=== PATIENT | male | born 1965 | race Caucasian/White ===

== ENCOUNTER 2018-10-06 13:22 | Emergency (ER) | payer MEDICAID ==
--- NOTE | 2018-10-06 13:57 | EDM.PDOC ---
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 Right upper lip. No inside mouth damage. Damage limited to upper lip only. No other complaints. No other injuries. PD attempting to identify and notify the owners. Initial indicators are that the dog is vaccinated. Onset: Today, Sudden Location: Reports: Face - Related Data Allergies Allergy/AdvReac Type Severity Reaction Status Date / Time No Known Allergies Allergy Verified 03/23/14 13:36 Home Meds: Home Meds ARIPiprazole [Abilify] 10 mg PO DAILY 04/11/14 [History] Albuterol Sulfate [Albuterol Sulfate HFA] 1 - 2 puff INH Q4H PRN 04/11/14 [ History] Atenolol [Tenormin] 1 tab PO DAILY 04/11/14 [History] Cyclobenzaprine [Flexeril] 1 tab PO TID PRN 04/11/14 [History] Docosanol [Abreva 10%] 1 applic TOP ASDIRECTED 04/11/14 [History] Fish Oil/[place]ster-3 Fatty Acids [Fish Oil 1,000 MG] 1,000 mg PO DAILY 04/11/14 [ History] Multivitamin [Multivitamins] 1 tab PO DAILY 04/11/14 [History] Naproxen [Naprosyn] 1 tab PO BID 04/11/14 [History] Omeprazole [Prilosec] 1 cap PO QAM 04/11/14 [History] PARoxetine [Paxil CR] 37.5 mg PO DAILY 04/11/14 [History] Tiotropium [Spiriva HandiHaler] 1 cap INH DAILY 04/11/14 [History] ED ROS GENERAL - Review of Systems Review Of Systems: See Below Constitutional: Reports: No Symptoms HEENT: Reports: No Symptoms Respiratory: Reports: No Symptoms Cardiovascular: Reports: No Symptoms Endocrine: Reports: No Symptoms GI/Abdominal: Reports: No Symptoms : Reports: No Symptoms Musculoskeletal: Reports: No Symptoms Skin: Reports: Wound (right upper lip) Neurological: Reports: No Symptoms Psychiatric: Reports: No Symptoms Hematologic/Lymphatic: Reports: No Symptoms Immunologic: Reports: No Symptoms ED EXAM, GENERAL - Physical Exam Exam: See Below Exam Limited By: No Limitations General Appearance: Alert, WD/WN, No Apparent Distress Nose: Normal Inspection, Normal Mucosa, No Blood Throat/Mouth: Normal Teeth, Normal Gums, Normal Oropharynx, Normal Voice, No Airway Compromise, Other (right upper lip with 1.5 cm laceration from dog bite. Linear). No: Normal Lips Head: Atraumatic, Normocephalic Neck: Normal Inspection, Supple, Non-Tender, Full Range of Motion Skin Exam: Wound/Incision (1.5 linear laceration to right upper noemi of the lip) ED GENERAL MEDICAL PROCEDURES - Laceration/Wound Repair Right Upper Other Lac/wound length in cm: 1.5 (right upper noemi of lip) Appearance: Superficial, Linear Distal NVT: Neuro & Vascular Intact Anesthetic Type: Local Local Anesthesia - Lidocaine (Xylocaine): 1% Plain Local Anesthetic Volume: 3cc Skin Prep: Chlorhexidine (Hibiciens) Exploration/Debridement/Repair: Wound Explored, In a Bloodless Field, Explored to Base, No Foreign Material Found Closed with: Sutures Suture Size: other (5-0) # of Sutures: 3 Suture Type: Nylon, Interrupted Sterile Dressing Applied: None Tetanus Status Addressed: Yes Complications: No Course - Orders/Labs/Meds Meds: Medications Discontinued Medications Generic Name Dose Route Start Last Admin Trade Name Hunterq PRN Reason Stop Dose Admin Lidocaine HCl 5 ml 10/06/18 13:32 10/06/18 13:38 Xylocaine-Mpf 1% INJECT 10/06/18 13:33 5 ml ONETIME ONE Administration Departure - Departure Time of Disposition: 14:05 Disposition: Home, Self-Care 01 Condition: Good Clinical Impression: Dog bite of skin of lip - Discharge Information *PRESCRIPTION DRUG MONITORING PROGRAM REVIEWED*: Not Applicable *COPY OF PRESCRIPTION DRUG MONITORING REPORT IN PATIENT DAYNA: Not Applicable Instructions: Animal Bite, Adult, [id number], Amoxicillin; Clavulanic Acid tablets, Probiotics Forms: ED Department Discharge Additional Instructions: Plan 1. Take the full course of Augmentin. 875/125 mg twice a day for 5 days. Eat yogurt 1-2 times per day or take a daily probiotic while on the antibiotic 2. Follow up at the clinic for suture removal in 10 days 3. Wash wound with soap and water, otherwise keep clean and dry 4. Watch for signs of infection including fever, increased swelling, pain, pus like drainage, redness, or a red streak from the wound site 5. Please call if you have any questions or concerns. - Problem List & Annotations (1) Dog bite of skin of lip SNOMED Code(s): 260976132 Code(s): S01.551A - OPEN BITE OF LIP, INITIAL ENCOUNTER; W54.0XXA - BITTEN BY DOG, INITIAL ENCOUNTER Status: Acute Priority: Low Qualifiers: Encounter type: initial encounter Qualified Code(s): S01.551A - Open bite of lip, initial encounter; W54.0XXA - Bitten by dog, initial encounter - Problem List Review Problem List Initiated/Reviewed/Updated: Yes - Assessment/Plan Assessment:: dog bite right upper lip Plan: Plan 1. Take the full course of Augmentin. 875/125 mg twice a day for 5 days. Eat yogurt 1-2 times per day or take a daily probiotic while on the antibiotic 2. Follow up at the clinic for suture removal in 10 days 3. Wash wound with soap and water, otherwise keep clean and dry 4. Watch for signs of infection including fever, increased swelling, pain, pus like drainage, redness, or a red streak from the wound site 5. Please call if you have any questions or concerns.
[2018-10-06 14:46] VITALS: BP 115/69; PULSE 101
== END 2018-10-06 14:05 | disposition home or self-care (01) ==
LOC: VM.ED 13:22
DX: S01.551A Open bite of lip, initial encounter (principal); W54.0XXA Bitten by dog, initial encounter; Z79.899 Other long term (current) drug therapy
CPT/HCPCS: 12011; 99283; J2001; 12051

== ENCOUNTER 2021-12-15 01:55 | Emergency (ER) | payer BC, MEDICAID ==
[2021-12-15] MEDS ORDERED: Sodium Chloride 0.9% 10 ML Syringe FLUSH PRN (02:07)
[2021-12-15] MEDS ORDERED: Lactated Ringers 1,000 ML IV ONE (02:08)
[2021-12-15] MEDS ORDERED: Ondansetron 4 MG/2 ML SDV IVPUSH ONE (02:08)
[2021-12-15 02:10] VITALS: BP 150/80; PULSE 62
[2021-12-15 02:41] LABS: ANION GAP 10.4 mmol/L (5-15); CHLORIDE,CL 103 mmol/L (98-107); ESTIMATED GFR 71 mL/min (>=60); PTT,PARTIAL THROMBOPLSTIN TIME 26.7 SEC (20.5-30.9); SODIUM,NA 137 mmol/L (136-145)
== END 2021-12-15 03:14 | disposition home or self-care (01) ==
LOC: VM.ED 01:55
DX: R10.30 Lower abdominal pain, unspecified (principal); I10 Essential (primary) hypertension; F17.210 Nicotine dependence, cigarettes, uncomplicated; Z79.899 Other long term (current) drug therapy
CPT/HCPCS: 36415; 80053; 80307; 82150; 83690; 83735; 84100; 85025; 85610; 85730; 96361; 96374; 99284-25; J2405; J7120

== ENCOUNTER 2023-05-17 14:19 | Inpatient (IN) | payer BC, MEDICAID ==
[2023-05-17] MEDS: Sodium Chloride 0.9% 1,000 ML IV ONE (16:20)
[2023-05-17] MEDS: Ondansetron 4 MG/2 ML SDV IVPUSH ONE (16:20)
[2023-05-17 16:26] LABS: BASOPHILS PERCENT AUTO 0.1 % (0.2-1.2); HEMATOCRIT 48.5 % (40.0-52.0); HEMOGLOBIN 16.7 g/dL (14.0-18.0); IMMATURE GRAN ABSOLUTE AUTO 0.01 x10^3/uL (0.00-0.07); LYMPHOCYTES ABSOLUTE AUTO 0.9 x10^3/uL (1.0-4.8); LYMPHOCYTES PERCENT AUTO 8.9 % (25.0-50.0); MEAN CORPUSCULAR HEMOGLOBIN 29.1 pg (26.0-32.0); MEAN CORPUSCULAR HGB CONC 34.4 g/dL (32.0-36.0); MEAN CORPUSCULAR VOLUME 84.6 fL (78.0-93.0); MONOCYTES ABSOLUTE AUTO 1.1 x10^3/uL (0.0-0.8); MONOCYTES PERCENT AUTO 10.3 % (2.0-11.0); NEUTROPHILS ABSOLUTE AUTO 8.5 x10^3/uL (1.8-7.7); NEUTROPHILS PERCENT AUTO 80.6 % (50.0-80.0); PLATELET COUNT,PLT 197 x10^3/uL (130-400); RED BLOOD CELL COUNT 5.73 x10^6/uL (4.5-6.0); WHITE BLOOD CELL COUNT,WBC 10.6 x10^3/uL (4.0-10.0)
[2023-05-17 16:41] LABS: A/G RATIO 0.96; ALANINE AMINOTRANSFERASE,ALT 30 U/L (16-63); ALBUMIN 4.4 g/dL (3.4-5.0); ALKALINE PHOSPHATASE 107 U/L (46-116); ASPARTATE AMNIOTRANSFERASE,AST 28 U/L (15-37); BILIRUBIN TOTAL 1.1 mg/dL (0.2-1.0); BLOOD UREA NITROGEN,BUN 28 mg/dL (7-18); C-REACTIVE PROTEIN 6.87 mg/dL (<=0.50); CALCIUM 9.9 mg/dL (8.5-10.1); CARBON DIOXIDE,CO2 30 mmol/L (21-32); CHLORIDE,CL 100 mmol/L (98-107); CREATININE 1.4 mg/dL (0.70-1.30); ESTIMATED GFR 59 mL/min (>=60); GLUCOSE RANDOM 140 mg/dL (70-99); LIPASE 20 U/L (19-71); SODIUM,NA 142 mmol/L (136-145)
[2023-05-17 17:32] LABS: BILIRUBIN,URINE SMALL (NEGATIVE); GLUCOSE,URINE NEGATIVE (NEGATIVE); KETONES,URINE NEGATIVE (NEGATIVE); LEUKOCYTE ESTERASE,URINE NEGATIVE (NEGATIVE); NITRITE,URINE NEGATIVE (NEGATIVE); OCCULT BLOOD,URINE NEGATIVE (NEGATIVE); PH,URINE 5.5 (5.0-8.0); PROTEIN,URINE 100 mg/dL (NEGATIVE); UROBILINOGEN,URINE 0.2 EU/dL (0.2)
[2023-05-17 17:42] LABS: APPEARANCE,URINE CLEAR (CLEAR); COLOR,URINE DARK YELLOW (YELLOW)
[2023-05-17 17:44] LABS: BACTERIA,URINE NOT SEEN /HPF (NOT SEEN); HYALINE CASTS,URINE FEW; MUCUS,URINE OCCASIONAL /LPF (NOT SEEN); RBC,URINE 0-5 /HPF (NOT SEEN); SQUAMOUS EPITHELIAL CELLS,UR NOT SEEN /HPF (NOT SEEN); WBC,URINE NOT SEEN /HPF (NOT SEEN)
[2023-05-17] MEDS: Iopamidol 612 MG/ML 100 ML Bottle IVPUSH ONE (17:52)
[2023-05-17] MEDS ORDERED: Naloxone 0.4 MG/ML SDV IVPUSH PRN (19:53)
[2023-05-17] MEDS ORDERED: Ondansetron 4 MG/2 ML SDV IVPUSH PRN (19:57)
[2023-05-17] MEDS ORDERED: Albuterol HFA 18 Gm Inhaler INH PRN (20:25)
[2023-05-17] MEDS: Sodium Chloride 0.9% 1,000 ML IV SCH (21:02)
[2023-05-17] MEDS: ZALEPLON 10 MG PO SCH (21:42)
[2023-05-17] MEDS: Heparin Sodium 5,000 Units/ML Vial SUBCUT SCH (23:00)
[2023-05-18] MEDS: ARIPiprazole 5 MG Tab PO SCH ×2 (00:29→09:15)
[2023-05-18] MEDS: Lidocaine 4% 5 ML Amp TOP ONE (00:59)
[2023-05-18 08:05] LABS: BASOPHILS PERCENT AUTO 0.2 % (0.2-1.2); EOSINOPHILS PERCENT AUTO 0.2 % (0.0-4.0); HEMATOCRIT 41.7 % (40.0-52.0); HEMOGLOBIN 13.8 g/dL (14.0-18.0); LYMPHOCYTES ABSOLUTE AUTO 0.9 x10^3/uL (1.0-4.8); LYMPHOCYTES PERCENT AUTO 14.2 % (25.0-50.0); MEAN CORPUSCULAR HEMOGLOBIN 28.9 pg (26.0-32.0); MEAN CORPUSCULAR HGB CONC 33.1 g/dL (32.0-36.0); MEAN CORPUSCULAR VOLUME 87.4 fL (78.0-93.0); MONOCYTES ABSOLUTE AUTO 0.8 x10^3/uL (0.0-0.8); MONOCYTES PERCENT AUTO 12.3 % (2.0-11.0); NEUTROPHILS ABSOLUTE AUTO 4.7 x10^3/uL (1.8-7.7); NEUTROPHILS PERCENT AUTO 73.1 % (50.0-80.0); PLATELET COUNT,PLT 158 x10^3/uL (130-400); RED BLOOD CELL COUNT 4.77 x10^6/uL (4.5-6.0); WHITE BLOOD CELL COUNT,WBC 6.4 x10^3/uL (4.0-10.0)
[2023-05-18 08:27] LABS: A/G RATIO 0.89; ALBUMIN 3.4 g/dL (3.4-5.0); BILIRUBIN TOTAL 0.9 mg/dL (0.2-1.0); CALCIUM 8.7 mg/dL (8.5-10.1); CREATININE 1.2 mg/dL (0.70-1.30); EST CRCL DRUG DOSING (CG) 56.87 mL/min; POTASSIUM,K 3.8 mmol/L (3.5-5.1); PROTEIN TOTAL,TP 7.2 g/dL (6.4-8.2)
[2023-05-18 08:33] LABS: ANION GAP 12.8 mmol/L (5-15)
[2023-05-18] MEDS: PARoxetine 20 MG Tab PO SCH (09:16)
[2023-05-18] MEDS: Nicotine 21 MG/24 Hr Patch TRDERM SCH (09:21)
[2023-05-18] MEDS: Ketorolac 30 MG/ML SDV IVPUSH PRN (19:58)
[2023-05-19 07:13] LABS: BASOPHILS PERCENT AUTO 0.2 % (0.2-1.2); EOSINOPHILS ABSOLUTE AUTO 0.1 x10^3/uL (0.0-0.5); EOSINOPHILS PERCENT AUTO 1.2 % (0.0-4.0); HEMATOCRIT 37.8 % (40.0-52.0); HEMOGLOBIN 12.3 g/dL (14.0-18.0); IMMATURE GRAN ABSOLUTE AUTO 0.01 x10^3/uL (0.00-0.07); LYMPHOCYTES ABSOLUTE AUTO 0.9 x10^3/uL (1.0-4.8); LYMPHOCYTES PERCENT AUTO 18.5 % (25.0-50.0); MEAN CORPUSCULAR HEMOGLOBIN 29.2 pg (26.0-32.0); MEAN CORPUSCULAR HGB CONC 32.5 g/dL (32.0-36.0); MEAN CORPUSCULAR VOLUME 89.8 fL (78.0-93.0); MONOCYTES ABSOLUTE AUTO 0.5 x10^3/uL (0.0-0.8); MONOCYTES PERCENT AUTO 10.9 % (2.0-11.0); NEUTROPHILS ABSOLUTE AUTO 3.4 x10^3/uL (1.8-7.7); PLATELET COUNT,PLT 140 x10^3/uL (130-400); RED BLOOD CELL COUNT 4.21 x10^6/uL (4.5-6.0); WHITE BLOOD CELL COUNT,WBC 4.9 x10^3/uL (4.0-10.0)
[2023-05-19 07:35] LABS: A/G RATIO 0.91; BILIRUBIN TOTAL 0.8 mg/dL (0.2-1.0); CALCIUM 8.4 mg/dL (8.5-10.1); EST CRCL DRUG DOSING (CG) 68.24 mL/min; POTASSIUM,K 3.6 mmol/L (3.5-5.1); PROTEIN TOTAL,TP 6.3 g/dL (6.4-8.2)
[2023-05-19 07:36] LABS: ANION GAP 11.6 mmol/L (5-15)
[2023-05-19] MEDS ORDERED: Lactated Ringers 1,000 ML IV SCH (08:45)
[2023-05-19] MEDS: Pantoprazole 40 MG Vial IVPUSH SCH (13:18)
[2023-05-19] MEDS: HYDROmorphone 0.5 MG/0.5 ML Syringe IVPUSH PRN (14:40)
[2023-05-19] MEDS: D5 1/2 NS w/ 20 mEq/L KCl 1,000 ML IV SCH (22:49)
[2023-05-20 10:58] LABS: A/G RATIO 0.88; ALBUMIN 2.9 g/dL (3.4-5.0); BILIRUBIN TOTAL 0.8 mg/dL (0.2-1.0); CALCIUM 8.3 mg/dL (8.5-10.1); CREATININE 0.9 mg/dL (0.70-1.30); EST CRCL DRUG DOSING (CG) 75.83 mL/min; POTASSIUM,K 3.9 mmol/L (3.5-5.1); PROTEIN TOTAL,TP 6.2 g/dL (6.4-8.2)
[2023-05-20 10:59] LABS: ANION GAP 11.9 mmol/L (5-15)
[2023-05-20 11:02] LABS: EOSINOPHILS ABSOLUTE AUTO 0.1 x10^3/uL (0.0-0.5); EOSINOPHILS PERCENT AUTO 1.3 % (0.0-4.0); HEMATOCRIT 36.2 % (40.0-52.0); HEMOGLOBIN 11.7 g/dL (14.0-18.0); IMMATURE GRAN ABSOLUTE AUTO 0.01 x10^3/uL (0.00-0.07); LYMPHOCYTES ABSOLUTE AUTO 0.8 x10^3/uL (1.0-4.8); LYMPHOCYTES PERCENT AUTO 18.2 % (25.0-50.0); MEAN CORPUSCULAR HEMOGLOBIN 28.8 pg (26.0-32.0); MEAN CORPUSCULAR HGB CONC 32.3 g/dL (32.0-36.0); MEAN CORPUSCULAR VOLUME 89.2 fL (78.0-93.0); MONOCYTES ABSOLUTE AUTO 0.5 x10^3/uL (0.0-0.8); MONOCYTES PERCENT AUTO 9.8 % (2.0-11.0); NEUTROPHILS ABSOLUTE AUTO 3.3 x10^3/uL (1.8-7.7); NEUTROPHILS PERCENT AUTO 70.5 % (50.0-80.0); PLATELET COUNT,PLT 136 x10^3/uL (130-400); RED BLOOD CELL COUNT 4.06 x10^6/uL (4.5-6.0); WHITE BLOOD CELL COUNT,WBC 4.6 x10^3/uL (4.0-10.0)
[2023-05-20] MEDS: Metoclopramide 10 MG/2 ML SDV IVPUSH SCH (12:23)
[2023-05-20] MEDS ORDERED: Acetaminophen 650 MG Supp RECTAL PRN (17:06)
[2023-05-20] MEDS: Acetaminophen 325 MG Tab PO PRN (23:13)
[2023-05-21 06:49] LABS: BASOPHILS PERCENT AUTO 0.1 % (0.2-1.2); EOSINOPHILS ABSOLUTE AUTO 0.1 x10^3/uL (0.0-0.5); EOSINOPHILS PERCENT AUTO 0.8 % (0.0-4.0); HEMATOCRIT 35.9 % (40.0-52.0); HEMOGLOBIN 12.2 g/dL (14.0-18.0); IMMATURE GRAN ABSOLUTE AUTO 0.02 x10^3/uL (0.00-0.07); LYMPHOCYTES ABSOLUTE AUTO 0.7 x10^3/uL (1.0-4.8); LYMPHOCYTES PERCENT AUTO 9.7 % (25.0-50.0); MEAN CORPUSCULAR HEMOGLOBIN 29.2 pg (26.0-32.0); MEAN CORPUSCULAR VOLUME 85.9 fL (78.0-93.0); MONOCYTES ABSOLUTE AUTO 0.6 x10^3/uL (0.0-0.8); MONOCYTES PERCENT AUTO 7.9 % (2.0-11.0); NEUTROPHILS ABSOLUTE AUTO 6.1 x10^3/uL (1.8-7.7); NEUTROPHILS PERCENT AUTO 81.2 % (50.0-80.0); PLATELET COUNT,PLT 144 x10^3/uL (130-400); RED BLOOD CELL COUNT 4.18 x10^6/uL (4.5-6.0); WHITE BLOOD CELL COUNT,WBC 7.5 x10^3/uL (4.0-10.0)
[2023-05-21 07:03] LABS: CALCIUM 8.4 mg/dL (8.5-10.1); CREATININE 0.9 mg/dL (0.70-1.30); EST CRCL DRUG DOSING (CG) 75.83 mL/min; POTASSIUM,K 3.8 mmol/L (3.5-5.1)
[2023-05-21 07:05] LABS: ANION GAP 12.8 mmol/L (5-15)
[2023-05-22] MEDS: Pantoprazole 40 MG Tab.CR PO SCH (08:40)
[2023-05-22] MEDS: Metoclopramide 10 MG Tab PO SCH (11:08)
[2023-05-22 18:45] VITALS: BP 108/72; PULSE 112
== END 2023-05-22 18:20 | disposition home or self-care (01) | DRG 247 ==
LOC: VM.ED 14:19 → VM.MS 18:52 → UNDOADMIN 19:00 → VM.MS 19:13
PROVIDERS: ADMIT Family Medicine; ATTEND Internal Medicine
DX: K56.609 Unspecified intestinal obstruction, unspecified as to partial versus complete obstruction (principal); K29.71 Gastritis, unspecified, with bleeding; F17.200 Nicotine dependence, unspecified, uncomplicated; G47.31 Primary central sleep apnea; F32.A Depression, unspecified; E66.9 Obesity, unspecified; R73.9 Hyperglycemia, unspecified; I12.9 Hypertensive chronic kidney disease with stage 1 through stage 4 chronic kidney disease, or unspecified chronic kidney disease; N18.9 Chronic kidney disease, unspecified; E87.20 Acidosis, unspecified; G47.00 Insomnia, unspecified; N17.9 Acute kidney failure, unspecified; E44.1 Mild protein-calorie malnutrition; D72.829 Elevated white blood cell count, unspecified; D50.9 Iron deficiency anemia, unspecified; J44.9 Chronic obstructive pulmonary disease, unspecified; G47.33 Obstructive sleep apnea (adult) (pediatric); E86.0 Dehydration; Z79.51 Long term (current) use of inhaled steroids; Z79.899 Other long term (current) drug therapy; Z68.41 Body mass index [BMI] 40.0-44.9, adult
CPT/HCPCS: 36415; 74018; 74019; 74177; 80048; 80053; 81001; 82271; 82947; 83690; 83735; 83986; 85018; 85025; 86140; 94760; 96361; 96374; 97161-GP; 99284; 99285-25; A9270-GY; C9113; J1170; J1644; J1885; J2405; J2765; J3480; J7030; Q9967

== ENCOUNTER 2023-06-26 06:43 | Day surgery (SDC) | payer BC ==
[2023-06-26] MEDS: Lactated Ringers 1,000 ML IV SCH (07:01)
[2023-06-26] MEDS ORDERED: Propofol 200 MG/20 ML SDV ONE ×2 (08:25→08:54)
[2023-06-26] MEDS ORDERED: fentaNYL 100 MCG/2 ML SDV ONE (08:26)
[2023-06-26 09:34] VITALS: BP 124/82; PULSE 62
[2023-07-31] MEDS ORDERED: Lactated Ringers 1,000 ML IV SCH (07:00)
== END 2023-06-26 10:22 | disposition home or self-care (01) ==
LOC: VM.SDS 06:43
PROVIDERS: ATTEND Family Medicine
DX: D12.0 Benign neoplasm of cecum (principal); D12.6 Benign neoplasm of colon, unspecified; K29.50 Unspecified chronic gastritis without bleeding; I10 Essential (primary) hypertension; J44.9 Chronic obstructive pulmonary disease, unspecified; K56.609 Unspecified intestinal obstruction, unspecified as to partial versus complete obstruction; G47.00 Insomnia, unspecified; F17.210 Nicotine dependence, cigarettes, uncomplicated; G47.33 Obstructive sleep apnea (adult) (pediatric); E66.01 Morbid (severe) obesity due to excess calories; Z68.41 Body mass index [BMI] 40.0-44.9, adult; Z79.899 Other long term (current) drug therapy; Z88.8 Allergy status to other drugs, medicaments and biological substances; Z80.0 Family history of malignant neoplasm of digestive organs
CPT/HCPCS: 00813; J2704; J3010; J7120

== ENCOUNTER 2023-09-27 10:59 | Emergency (ER) | payer OTHER, BC ==
[2023-09-27 11:10] VITALS: BP 108/62; PULSE 93
[2023-09-27] MEDS: traMADol 50 MG Tab PO ONE (12:30)
== END 2023-09-27 13:20 | disposition other institution (70) ==
LOC: VM.ED 10:59
DX: S82.832A Other fracture of upper and lower end of left fibula, initial encounter for closed fracture (principal); S82.102A Unspecified fracture of upper end of left tibia, initial encounter for closed fracture; W18.30XA Fall on same level, unspecified, initial encounter
CPT/HCPCS: 73562; 73590; 99283; A9270

== ENCOUNTER 2023-09-27 19:31 | Observation (INO) | payer OTHER, BC ==
[2023-09-27] MEDS ORDERED: Docusate Sodium 100 MG Cap PO PRN (19:41)
[2023-09-27] MEDS ORDERED: Sodium Chloride 0.9% 10 ML Syringe FLUSH PRN (19:41)
[2023-09-27] MEDS ORDERED: Sennosides/Docusate Sodium 50-8.6 MG Tab PO PRN (19:41)
[2023-09-27] MEDS ORDERED: Acetaminophen 325 MG Tab PO PRN (19:41)
[2023-09-27] MEDS ORDERED: Naloxone 0.4 MG/ML SDV IVPUSH PRN (19:41)
[2023-09-27] MEDS ORDERED: HYDROmorphone 0.5 MG/0.5 ML Syringe IVPUSH PRN (19:41)
[2023-09-27] MEDS ORDERED: Polyethylene Glycol 3350 Powder 17 GM Packet PO PRN (19:41)
[2023-09-27] MEDS ORDERED: Nicotine 21 MG/24 Hr Patch TRDERM PRN (20:57)
[2023-09-27] MEDS: ARIPiprazole 5 MG Tab PO SCH (21:10)
[2023-09-27] MEDS: Acetaminophen/HYDROcodone 325-5 MG Tab PO PRN (21:11)
[2023-09-27] MEDS: Zolpidem 5 MG Tab PO SCH (21:11)
[2023-09-28] MEDS: Naltrexone 50 MG Tab PO SCH (09:00)
[2023-09-28] MEDS: PARoxetine 20 MG Tab PO SCH (14:45)
[2023-09-28] MEDS: Omeprazole 20 MG Cap.CR PO SCH (14:45)
[2023-09-28] MEDS: Multivitamin Tab PO SCH (14:45)
[2023-09-29 06:14] VITALS: BP 141/71; PULSE 71
[2023-09-29 07:00] LABS: HEMATOCRIT 32.9 % (40.0-52.0); HEMOGLOBIN 11.5 g/dL (14.0-18.0); MEAN CORPUSCULAR HEMOGLOBIN 29.8 pg (26.0-32.0); MEAN CORPUSCULAR VOLUME 85.2 fL (78.0-93.0); RED BLOOD CELL COUNT 3.86 x10^6/uL (4.5-6.0)
[2023-09-29 07:09] LABS: A/G RATIO 0.86; ALBUMIN 3.2 g/dL (3.4-5.0); BILIRUBIN TOTAL 0.8 mg/dL (0.2-1.0); CREATININE 0.9 mg/dL (0.70-1.30); EST CRCL DRUG DOSING (CG) 78.77 mL/min; POTASSIUM,K 4.1 mmol/L (3.5-5.1); PROTEIN TOTAL,TP 6.9 g/dL (6.4-8.2)
[2023-09-29 07:12] LABS: ANION GAP 13.1 mmol/L (5-15)
== END 2023-09-29 14:26 | disposition swing bed (61) ==
LOC: VM.MS 19:31
PROVIDERS: ADMIT Nurse Practitioner Family; ATTEND Nurse Practitioner Family
DX: S82.102A Unspecified fracture of upper end of left tibia, initial encounter for closed fracture (principal); S82.832A Other fracture of upper and lower end of left fibula, initial encounter for closed fracture; J44.9 Chronic obstructive pulmonary disease, unspecified; G47.00 Insomnia, unspecified; F32.A Depression, unspecified; F10.90 Alcohol use, unspecified, uncomplicated; K29.50 Unspecified chronic gastritis without bleeding; G47.30 Sleep apnea, unspecified; F81.9 Developmental disorder of scholastic skills, unspecified; F17.200 Nicotine dependence, unspecified, uncomplicated; I10 Essential (primary) hypertension; E66.9 Obesity, unspecified; D50.9 Iron deficiency anemia, unspecified; Z88.8 Allergy status to other drugs, medicaments and biological substances; Z79.899 Other long term (current) drug therapy; W17.89XA Other fall from one level to another, initial encounter
CPT/HCPCS: 36415; 73700; 80053; 85027; 97161; 97165; 97535; A9270; G0378

== ENCOUNTER 2023-09-29 11:47 | Inpatient (IN) | payer OTHER, BC ==
[2023-09-29] MEDS: Acetaminophen/HYDROcodone 325-5 MG Tab PO PRN ×2 (15:55→22:13)
[2023-09-29] MEDS ORDERED: Sennosides/Docusate Sodium 50-8.6 MG Tab PO PRN (16:15)
[2023-09-29] MEDS ORDERED: Nicotine 21 MG/24 Hr Patch TRDERM PRN (17:00)
[2023-09-29] MEDS: Sennosides/Docusate Sodium 50-8.6 MG Tab PO SCH (20:17)
[2023-09-29] MEDS: ARIPiprazole 5 MG Tab PO SCH (20:17)
[2023-09-29] MEDS: Zolpidem 5 MG Tab PO SCH (20:18)
[2023-09-30] MEDS: PARoxetine 20 MG Tab PO SCH (09:04)
[2023-09-30] MEDS: Multivitamin Tab PO SCH (09:08)
[2023-09-30] MEDS: Omeprazole 20 MG Cap.CR PO SCH (09:08)
[2023-09-30 11:28] LABS: HEMATOCRIT 32.5 % (40.0-52.0); HEMOGLOBIN 10.9 g/dL (14.0-18.0); MEAN CORPUSCULAR HEMOGLOBIN 29.2 pg (26.0-32.0); MEAN CORPUSCULAR HGB CONC 33.5 g/dL (32.0-36.0); MEAN CORPUSCULAR VOLUME 87.1 fL (78.0-93.0); RED BLOOD CELL COUNT 3.73 x10^6/uL (4.5-6.0); WHITE BLOOD CELL COUNT,WBC 7.6 x10^3/uL (4.0-10.0)
[2023-09-30] MEDS: Enoxaparin 40 MG/0.4 ML Syringe SUBCUT SCH (12:28)
[2023-09-30] MEDS: ARIPIPRAZOLE 20 MG PO SCH (20:24)
[2023-09-30] MEDS: ZALEPLON 10 MG PO SCH (20:25)
[2023-09-30] MEDS: Acetaminophen/HYDROcodone 325-5 MG Tab (OWN SUPPLY) PO PRN (23:23)
[2023-10-01] MEDS: Omeprazole 20 MG Cap.CR (OWN SUPPLY) PO SCH (08:49)
[2023-10-01] MEDS: Enoxaparin 40 MG/0.4 ML Syringe (OWN SUPPLY) SUBCUT SCH (15:51)
[2023-10-01] MEDS: Docusate Sodium 100 MG Cap PO PRN (20:50)
[2023-10-03 06:52] LABS: HEMATOCRIT 31.7 % (40.0-52.0); HEMOGLOBIN 10.6 g/dL (14.0-18.0); MEAN CORPUSCULAR HGB CONC 33.4 g/dL (32.0-36.0); MEAN CORPUSCULAR VOLUME 86.6 fL (78.0-93.0); RED BLOOD CELL COUNT 3.66 x10^6/uL (4.5-6.0); WHITE BLOOD CELL COUNT,WBC 6.6 x10^3/uL (4.0-10.0)
[2023-10-06 07:00] LABS: HEMATOCRIT 33.4 % (40.0-52.0); HEMOGLOBIN 11.2 g/dL (14.0-18.0); MEAN CORPUSCULAR HEMOGLOBIN 28.9 pg (26.0-32.0); MEAN CORPUSCULAR HGB CONC 33.5 g/dL (32.0-36.0); MEAN CORPUSCULAR VOLUME 86.3 fL (78.0-93.0); RED BLOOD CELL COUNT 3.87 x10^6/uL (4.5-6.0)
[2023-10-09 06:44] LABS: HEMATOCRIT 31.6 % (40.0-52.0); HEMOGLOBIN 10.6 g/dL (14.0-18.0); MEAN CORPUSCULAR HGB CONC 33.5 g/dL (32.0-36.0); MEAN CORPUSCULAR VOLUME 86.3 fL (78.0-93.0); RED BLOOD CELL COUNT 3.66 x10^6/uL (4.5-6.0); WHITE BLOOD CELL COUNT,WBC 6.2 x10^3/uL (4.0-10.0)
[2023-10-12 07:59] LABS: HEMATOCRIT 34.5 % (40.0-52.0); HEMOGLOBIN 11.3 g/dL (14.0-18.0); MEAN CORPUSCULAR HEMOGLOBIN 28.6 pg (26.0-32.0); MEAN CORPUSCULAR HGB CONC 32.8 g/dL (32.0-36.0); MEAN CORPUSCULAR VOLUME 87.3 fL (78.0-93.0); RED BLOOD CELL COUNT 3.95 x10^6/uL (4.5-6.0); WHITE BLOOD CELL COUNT,WBC 5.9 x10^3/uL (4.0-10.0)
[2023-10-12] MEDS: Polyethylene Glycol 3350 Powder 17 GM Packet PO PRN (08:22)
[2023-10-15 06:53] LABS: HEMATOCRIT 36.3 % (40.0-52.0); MEAN CORPUSCULAR HEMOGLOBIN 28.6 pg (26.0-32.0); MEAN CORPUSCULAR HGB CONC 33.1 g/dL (32.0-36.0); MEAN CORPUSCULAR VOLUME 86.6 fL (78.0-93.0); RED BLOOD CELL COUNT 4.19 x10^6/uL (4.5-6.0); WHITE BLOOD CELL COUNT,WBC 8.6 x10^3/uL (4.0-10.0)
[2023-10-15] MEDS: Menthol Lozenge MUCMEM PRN (12:21)
[2023-10-17] MEDS: Acetaminophen 325 MG Tab PO PRN (09:39)
[2023-10-18 07:43] LABS: HEMATOCRIT 32.2 % (40.0-52.0); HEMOGLOBIN 10.5 g/dL (14.0-18.0); MEAN CORPUSCULAR HEMOGLOBIN 28.3 pg (26.0-32.0); MEAN CORPUSCULAR HGB CONC 32.6 g/dL (32.0-36.0); MEAN CORPUSCULAR VOLUME 86.8 fL (78.0-93.0); RED BLOOD CELL COUNT 3.71 x10^6/uL (4.5-6.0); WHITE BLOOD CELL COUNT,WBC 6.1 x10^3/uL (4.0-10.0)
[2023-10-21 05:36] VITALS: BP 119/60; PULSE 82
[2023-10-21] MEDS ORDERED: Acetaminophen/HYDROcodone 325-5 MG Tab PO PRN (09:26)
== END 2023-10-21 11:15 | DRG 561 ==
LOC: VM.MS 14:27
PROVIDERS: ADMIT Nurse Practitioner Family; ATTEND Internal Medicine
DX: S82.102D Unspecified fracture of upper end of left tibia, subsequent encounter for closed fracture with routine healing (principal); S82.832D Other fracture of upper and lower end of left fibula, subsequent encounter for closed fracture with routine healing; F32.A Depression, unspecified; J44.9 Chronic obstructive pulmonary disease, unspecified; E66.9 Obesity, unspecified; D64.9 Anemia, unspecified; G47.00 Insomnia, unspecified; G47.33 Obstructive sleep apnea (adult) (pediatric); K29.50 Unspecified chronic gastritis without bleeding; R91.1 Solitary pulmonary nodule; F17.200 Nicotine dependence, unspecified, uncomplicated; Z88.8 Allergy status to other drugs, medicaments and biological substances; Z79.899 Other long term (current) drug therapy; Z90.89 Acquired absence of other organs; Z98.890 Other specified postprocedural states; W22.8XXD Striking against or struck by other objects, subsequent encounter
CPT/HCPCS: 36415; 85027; 95851-GO; 97110-GP; 97116-GP; 97530-GO; 97530-GP; 97535-GO; A9270-GY; J1650

== ENCOUNTER 2024-02-15 19:48 | Emergency (ER) | payer BC, OTHER ==
[~2024-02-15 19:48] MED LIST: EPINEPHrine 1:10,000 1 MG/10 ML Syringe ONE; Sodium Chloride 0.9% 1,000 ML IV ONE
== END 2024-02-15 21:24 | disposition expired ==
LOC: VM.ED 19:48
DX: I46.9 Cardiac arrest, cause unspecified (principal); I10 Essential (primary) hypertension; J44.9 Chronic obstructive pulmonary disease, unspecified; E66.9 Obesity, unspecified; Z79.899 Other long term (current) drug therapy; Z88.8 Allergy status to other drugs, medicaments and biological substances
CPT/HCPCS: 31500; 92950; 94760; 99285-25; J0171; J7030